=== PATIENT | male | born 1990 | race Caucasian/White ===

== ENCOUNTER 2017-06-04 12:42 | Outpatient (CLI) | payer OTHER | END 2017-06-04 12:43 | disposition home or self-care (01) | LOC: DI 12:42 | PROVIDERS: ATTEND General Practice | DX: R94.31 Abnormal electrocardiogram [ECG] [EKG] (principal) | CPT/HCPCS: 93306 ==

== ENCOUNTER 2021-06-11 09:54 | Outpatient (CLI) | payer OTHER ==
[2021-06-11] MEDS ORDERED: LACTATED RINGERS 1,000 ML IV ONE ×2 (09:57→12:30)
[2021-06-11] MEDS ORDERED: BUFFERED LIDOCAINE 10 ML SYRINGE ONE (10:25)
[2021-06-11 10:33] LABS: BASOPHILS # (AUTO) 0.1 10^3/uL (0.0-0.1); BASOPHILS % (AUTO) 1.2 %; EOSINOPHILS # (AUTO) 0.1 10^3/uL (0.0-0.7); EOSINOPHILS % (AUTO) 2.6 %; HCT - HEMATOCRIT 38.4 % (42.0-52.0); HGB - HEMOGLOBIN 13.1 g/dL (14.0-18.0); LYMPHOCYTES # (AUTO) 1.3 10^3/uL (1.5-3.5); LYMPHOCYTES % (AUTO) 30.1 %; MEAN CORPUSCULAR HEMOGLOBIN 31.8 pg (27.0-31.0); MEAN CORPUSCULAR HGB CONC 34.1 g/dL (32.0-36.0); MEAN CORPUSCULAR VOLUME 93.2 fL (80.0-94.0); MEAN PLATELET VOLUME 9.4 fL (7.4-11.4); MONOCYTES # (AUTO) 0.4 10^3/uL (0.0-1.0); MONOCYTES % (AUTO) 8.6 %; NEUTROPHILS # (AUTO) 2.4 10^3/uL (1.5-6.6); NEUTROPHILS % (AUTO) 57.5 %; PLT - PLATELET COUNT 280 10^3/uL (130-450); RED BLOOD COUNT 4.12 10^6/uL (4.70-6.10); RED CELL DISTRIBUTION WIDTH 11.9 % (12.0-15.0); WHITE BLOOD COUNT 4.2 x10^3/uL (4.8-10.8)
[2021-06-11 10:50] LABS: INR 1.1 (0.8-1.2)
[2021-06-11 10:57] LABS: PARTIAL THROMBOPLASTIN TIME 33.1 secs (24.9-33.3)
[2021-06-11] MEDS ORDERED: MIDAZOLAM 2 MG/2 ML VIAL ONE (11:45)
[2021-06-11] MEDS ORDERED: fentaNYL 100 MCG/2 ML VIAL ONE (11:45)
--- NOTE | 2021-06-11 13:27 | CT Report ---
PROCEDURE: BONE MARROW BX W/ASPIRATION Sedation analgesia for less than 30 minutes (please see patient's chart). INDICATIONS: ANEMIA TECHNIQUE: The indications, alternatives, benefits, risks, and possible complications of the procedure were comm unicated to the patient. Informed written consent from the patient was obtained and placed in the art. Continuous EKG and hemodynamic monitoring was started by trained personnel. For radiation dose reduction, the following was used: automated exposure control, adjustment of mA and/or kV according to patient size. The patient was brought to the CT suite and training and development professional spiral CT imaging was performed with localization g rid. The appropriate site for percutaneous access to the biopsy target was marked, was prepped and d raped sterilely, and was infused with local anaesthesia. Under CT guidance, a core biopsy trocar and needle set was advanced to the biopsy target, and specimen(s) were obtained. The trocar and needle were then removed, and the patient was sent for post-procedure monitoring. COMPARISON: None. FINDINGS: Biopsy site: Medial iliac bone Needle: 13-gauge Arrow bone drill Number of passes: 1 Medications: 1% lidocaine for local anaesthesia. IV Fentanyl and Versed for conscious sedation for less than 30 minutes (see nursing record). Complications: None. IMPRESSION: Successful CT-guided bone marrow biopsy of the left medial iliac bone. Comment: Samples were obtained in the presence of a cytology tech. Bone marrow aspirate and core samp les were obtained and prepared as per appropriate protocol. Reviewed by: Rasta Smith MD on 06/11/2021 1:26 PM PDT Approved by: Rasta Smith MD on 06/11/2021 1:26 PM PDT Station ID: [id number]
[2021-06-11 14:05] VITALS: BP 109/78
[2021-06-11] MEDS ORDERED: BUFFERED LIDOCAINE 10 ML SYRINGE IU ONE (19:17)
== END 2021-06-11 09:55 | disposition home or self-care (01) ==
LOC: DI 09:54
PROVIDERS: ATTEND Internal Medicine Hematology & Oncology
DX: D64.9 Anemia, unspecified (principal); D72.819 Decreased white blood cell count, unspecified
CPT/HCPCS: 36415; 38222; 77012; 85025; 85610; 85730; J7120